=== PATIENT | male | born 1995 | race Caucasian/White ===

== ENCOUNTER 2018-06-20 17:35 | Emergency (ER) | payer SELFPAY ==
[~2018-06-20] VITALS: Ht 165.1 cm; Wt 75.0 kg
[2018-06-20 17:44] VITALS: BP 136/90; PULSE 88; RESP 20; Ht 165.1 cm; Wt 75.0 kg
== END 2018-06-20 19:30 | disposition left against medical advice (07) ==
LOC: E/R 17:35
DX: Z53.21 Procedure and treatment not carried out due to patient leaving prior to being seen by health care provider (principal)